=== PATIENT | female | born 1970 | race Caucasian/White ===

== ENCOUNTER 2018-10-27 07:02 | Emergency (ER) | payer OTHER ==
[~2018-10-27] VITALS: Ht 165.1 cm; Wt 60.3 kg
[2018-10-27] MEDS ORDERED: SPIRONOLACTONE25 M1 PO (07:11)
[2018-10-27] MEDS ORDERED: LINZESS72 MCG PO (07:11)
[2018-10-27 07:29] LABS: HEMATOCRIT 43.9 % (37.0-47.0); HEMOGLOBIN 15.1 gm/dL (12.0-15.0); MCH 31.6 pg (26.0-34.0); MCHC 34.5 g/dL (28.0-37.0); MCV 91.7 fL (80.0-100.0); NUCLEATED RBCS 0 /100WBC; PLATELET COUNT* 303 thou/uL (150-400); RBC 4.79 mil/uL (4.20-5.00); RDW-CV 13.4 % (10.5-14.5); WBC 6.3 thou/uL (4.0-11.0)
[2018-10-27 07:38] LABS: ANION GAP 10 mmol/L (7-16); BUN 22 mg/dL (7-18); CALCIUM 9.7 mg/dL (8.5-10.1); CHLORIDE 103 mmol/L (98-107); CO2 28 mmol/L (21-32); CREATININE 1.2 mg/dL (0.6-1.3); GLUCOSE 94 mg/dL (70-99); POTASSIUM 4.5 mmol/L (3.5-5.1); SODIUM 141 mmol/L (136-145)
[2018-10-27 07:44] LABS: APTT 22.4 Seconds (25.0-31.3); PROTIME 10.5 Seconds (9.20-11.50)
[2018-10-27 07:47] LABS: ALBUMIN 4.1 g/dL (3.4-5.0); ALKALINE PHOSPHATASE 60 U/L (46-116); LIPASE 172 U/L (73-393); SGOT 23 U/L (15-37); SGPT 28 U/L (30-65); TOTAL BILIRUBIN 1.1 mg/dL (<0.1-1.0); TOTAL PROTEIN 7.8 g/dL (6.4-8.2); TROPONIN-I LEVEL <0.06 ng/mL (<0.06)
[2018-10-27 07:54] LABS: ABSOLUTE EOSINOPHILS 0.9 thou/uL (0.0-0.7); ABSOLUTE LYMPHOCYTES 1.6 thou/uL (0.8-5.3); ABSOLUTE MONOCYTES 0.1 thou/uL (0.0-1.2); ABSOLUTE NEUTROPHILS 3.7 thou/uL (1.6-8.1)
[2018-10-27 07:55] LABS: ANISOCYTOSIS 1+; PLATELET ESTIMATE ADEQUATE; POIKILOCYTOSIS 1+
[2018-10-27 08:55] LABS: URINE BILIRUBIN NEGATIVE (Negative); URINE BLOOD NEGATIVE (Negative); URINE CLARITY CLEAR; URINE COLOR YELLOW; URINE GLUCOSE-RANDOM NEGATIVE (Negative); URINE KETONES NEGATIVE (Negative); URINE LEUKOCYTES-REFLEX NEGATIVE (Negative); URINE NITRITE-REFLEX NEGATIVE (Negative); URINE PROTEIN TRACE (Negative); URINE SPECIFIC GRAVITY 1.015 (1.005-1.030); URINE UROBILINOGEN 0.2 E.U./dl (0.2-1.0)
[2018-10-27 08:56] VITALS: BP 120/75
--- NOTE | 2018-10-27 17:23 | EKG ---
[place] [address] ELECTROCARDIOGRAM REPORT Name: FELI VILLEGAS Room: [facility]#: [id number] Admission: 10/27/18 Attend Phys: Discharge: 10/27/18 Date of : 68 Report #: [id number] THIS REPORT FOR: //name// [facility] ED Test Date: 2018-10-27 Test Time: 07:08:39 Pat Name: FELI VILLEGAS Department: Room: Gender: F Chief Cruiser: : 1970 Requested By: Taurus Zabala Order Number: [id number] MD: Son Calderon Measurements Intervals [place] Rate: 59 P: 67 LA: 171 QRS: 67 QRSD: 86 T: 34 QT: 397 QTc: 394 Interpretive Statements Sinus arrhythmia Possible left atrial enlargement Nonspecific T abnormalities, anterior leads ST elev, probable normal early repol pattern No previous ECG available for comparison Electronically Signed On 10-27-2018 17:23:25 CDT by Son Calderon [email or web address] <ELECTRONICALLY SIGNED> By: Son Calderon MD, [facility] 10/27/18 1723 7 7 Son Calderon MD, FACC /EPI
== END 2018-10-27 08:57 | disposition home or self-care (01) ==
LOC: M.ERS 07:02
PROVIDERS: Family Medicine
DX: R55 Syncope and collapse (principal); R00.2 Palpitations; K58.9 Irritable bowel syndrome, unspecified